=== PATIENT | male | born 1940 | race Caucasian/White ===

== ENCOUNTER → 2016-10-22 | Outpatient (CLI) | payer MEDICARE | END | disposition home or self-care (01) | LOC: CVU 07:33 | PROVIDERS: ATTEND Surgery Vascular Surgery | DX: I71.4 Abdominal aortic aneurysm, without rupture (principal); I74.09 Other arterial embolism and thrombosis of abdominal aorta | CPT/HCPCS: 93978 ==

== ENCOUNTER → 2016-11-01 | Outpatient (CLI) | payer MEDICARE | END | disposition home or self-care (01) | LOC: CFH 08:24 | PROVIDERS: ATTEND Internal Medicine Cardiovascular Disease | DX: I11.0 Hypertensive heart disease with heart failure (principal); I50.30 Unspecified diastolic (congestive) heart failure; I08.3 Combined rheumatic disorders of mitral, aortic and tricuspid valves; I37.1 Nonrheumatic pulmonary valve insufficiency; I51.7 Cardiomegaly; E78.5 Hyperlipidemia, unspecified; Z87.891 Personal history of nicotine dependence; Z86.79 Personal history of other diseases of the circulatory system | CPT/HCPCS: 93306 ==

== ENCOUNTER 2017-11-14 10:07 | Day surgery (SDC) | payer MEDICARE ==
[2017-11-13 08:49] LABS: BASOPHILS # (AUTO) 0.01 x10^3/uL (0-0.1); BASOPHILS % (AUTO) 0 % (0-1); EOSINOPHILS # (AUTO) 0.23 x10^3/uL (0-0.4); EOSINOPHILS % (AUTO) 4 % (1-7); LYMPHOCYTES # (AUTO) 1.69 x10^3/uL (1-3.4); LYMPHOCYTES % (AUTO) 25 % (22-44); MD NO; MEAN CORPUSCULAR HEMOGLOBIN 34.1 pg (27.5-34.5); MEAN CORPUSCULAR HGB CONC 33.6 g/dL (33.2-36.2); MEAN CORPUSCULAR VOLUME 101.6 fL (81-97); MEAN PLATELET VOLUME 10.1 fL (7.4-10.4); MONOCYTES # (AUTO) 0.58 x10^3/uL (0.2-0.8); MONOCYTES % (AUTO) 9 % (2-9); NEUTROPHILS # (AUTO) 4.23 x10^3/uL (1.8-6.8); NEUTROPHILS % (AUTO) 63 % (42-75); PLATELET COUNT 205 x10^3/uL (130-400); RED BLOOD COUNT 4.07 x10^6/uL (4.38-5.82); RED CELL DISTRIBUTION WIDTH 14.4 % (9.4-14.8)
[2017-11-13 08:56] LABS: INTERNATIONAL NORMALIZED RATIO 1.09 (0.93-1.1); PROTHROMBIN TIME 11.3 Seconds (9.6-11.5)
[2017-11-13 09:00] LABS: ALANINE AMINOTRANSFERASE 32 U/L (12-78); ALBUMIN 4.3 g/dL (3.4-5.0); ANION GAP 5 mmol/L (5-15); CALCIUM 8.8 mg/dL (8.5-10.1); CHLORIDE 109 mmol/L (98-107)
[2017-11-13 09:02] LABS: ALKALINE PHOSPHATASE 55 U/L (45-117); BILIRUBIN,TOTAL 0.9 mg/dL (0.2-1.0); TOTAL PROTEIN 7.7 g/dL (6.4-8.2)
[~2017-11-14] VITALS: Ht 180.3 cm; Wt 98.2 kg
[~2017-11-14 10:07] MED LIST: ALLO300T PO; ATOR-2 PO; CHOL10003 PO; FINA5TAB4 PO; LISI-167 PO; MULT-224 PO; OMEG-14 PO
[2017-11-14] MEDS ORDERED: SODIUM CHLORIDE 0.9% 1,000 ML IV ONE (10:58)
[2017-11-14] MEDS ORDERED: ASPIRIN 325 MG TABLET EC PO ONE (11:00)
[2017-11-14] MEDS ORDERED: CLOPIDOGREL 75 MG TABLET PO ONE (11:00)
[2017-11-14 11:04] VITALS: BP 173/74
[2017-11-14] MEDS ORDERED: FENTANYL PF 100 MCG/2ML ONE (11:48)
[2017-11-14] MEDS ORDERED: LIDOCAINE 2%, 2ML ONE (11:48)
[2017-11-14] MEDS ORDERED: TICAGRELOR 90 MG TABLET ONE (11:48)
[2017-11-14] MEDS ORDERED: VERAPAMIL 2.5 MG/ML, 2ML ONE (11:48)
[2017-11-14] MEDS ORDERED: MIDAZOLAM 1 MG/ML, 5ML ONE (11:48)
[2017-11-14] MEDS ORDERED: HEPARIN 1,000 UNITS/ML, 10ML ONE (11:48)
[2017-11-14] MEDS ORDERED: BIVALIRUDIN 250 MG ONE (11:48)
[2017-11-14] MEDS ORDERED: SODIUM CHLORIDE 0.9% 1,000 ML IV SCH (12:47)
== END 2017-11-14 16:01 ==
LOC: CACL 10:07
PROVIDERS: ATTEND Internal Medicine Cardiovascular Disease
DX: I25.10 Atherosclerotic heart disease of native coronary artery without angina pectoris (principal); Z88.1 Allergy status to other antibiotic agents; Z88.8 Allergy status to other drugs, medicaments and biological substances; I10 Essential (primary) hypertension; M10.9 Gout, unspecified; E11.22 Type 2 diabetes mellitus with diabetic chronic kidney disease; I12.9 Hypertensive chronic kidney disease with stage 1 through stage 4 chronic kidney disease, or unspecified chronic kidney disease; N18.3 Chronic kidney disease, stage 3 (moderate); Z98.890 Other specified postprocedural states
CPT/HCPCS: 36415; 71046; 80053; 85025; 85610; 85730; 93454; 93571; 99156; 99157; C1894; J0583; J1644; J2250; J3010; J3490; C1769; J7030; Q9967

== ENCOUNTER → 2017-12-04 | Outpatient (CLI) | payer MEDICARE ==
[~2017-12-04] MED LIST changes: +OMNIPAQUE 350 MG/ML, 150 ML BOTTLE ONE
== END | disposition home or self-care (01) ==
LOC: CVU 06:41
PROVIDERS: ATTEND Surgery Vascular Surgery
DX: I71.4 Abdominal aortic aneurysm, without rupture (principal); I35.0 Nonrheumatic aortic (valve) stenosis; I65.23 Occlusion and stenosis of bilateral carotid arteries; I10 Essential (primary) hypertension; K80.20 Calculus of gallbladder without cholecystitis without obstruction; E78.5 Hyperlipidemia, unspecified; N28.1 Cyst of kidney, acquired; K44.9 Diaphragmatic hernia without obstruction or gangrene; Z87.891 Personal history of nicotine dependence
CPT/HCPCS: 71275; 74174; 93880; 93978; 94010; 94726; 94729; Q9967

== ENCOUNTER 2017-12-24 07:14 | Inpatient (IN) | payer MEDICARE ==
[~2017-12-24] VITALS: Ht 182.9 cm; Wt 126.9 kg
[~2017-12-24 07:14] MED LIST changes: -OMNIPAQUE 350 MG/ML, 150 ML BOTTLE ONE
[2017-12-24] MEDS ORDERED: SODIUM CHLORIDE 0.9% 1,000 ML IV ONE (07:33)
[2017-12-24 07:46] VITALS: BP 129/73
[2017-12-24] MEDS ORDERED: CHLORHEXIDINE 15 ML BOTTLE MM PRN (08:00)
[2017-12-24 08:35] LABS: ALANINE AMINOTRANSFERASE 33 U/L (12-78); ALBUMIN 4.1 g/dL (3.4-5.0); ANION GAP 6 mmol/L (5-15); CALCIUM 8.9 mg/dL (8.5-10.1); CHLORIDE 107 mmol/L (98-107); CREATININE 1.92 mg/dL (0.7-1.3)
[2017-12-24 08:38] LABS: ALKALINE PHOSPHATASE 63 U/L (45-117); BILIRUBIN,TOTAL 0.6 mg/dL (0.2-1.0); TOTAL PROTEIN 7.5 g/dL (6.4-8.2)
[2017-12-24 08:39] LABS: INTERNATIONAL NORMALIZED RATIO 1.08 (0.93-1.1); PROTHROMBIN TIME 11.1 Seconds (9.6-11.5)
[2017-12-24 08:41] LABS: BASOPHILS # (AUTO) 0.02 x10^3/uL (0-0.1); BASOPHILS % (AUTO) 0 % (0-1); EOSINOPHILS # (AUTO) 1.24 x10^3/uL (0-0.4); EOSINOPHILS % (AUTO) 16 % (1-7); LYMPHOCYTES # (AUTO) 1.78 x10^3/uL (1-3.4); LYMPHOCYTES % (AUTO) 23 % (22-44); MD NO; MEAN CORPUSCULAR HEMOGLOBIN 33.8 pg (27.5-34.5); MEAN CORPUSCULAR HGB CONC 33.6 g/dL (33.2-36.2); MEAN CORPUSCULAR VOLUME 100.8 fL (81-97); MEAN PLATELET VOLUME 10.9 fL (7.4-10.4); MONOCYTES # (AUTO) 0.64 x10^3/uL (0.2-0.8); MONOCYTES % (AUTO) 8 % (2-9); NEUTROPHILS # (AUTO) 4.09 x10^3/uL (1.8-6.8); NEUTROPHILS % (AUTO) 53 % (42-75); PLATELET COUNT 189 x10^3/uL (130-400); RED BLOOD COUNT 3.91 x10^6/uL (4.38-5.82); RED CELL DISTRIBUTION WIDTH 14.3 % (9.4-14.8)
[2017-12-24] MEDS ORDERED: HEPARIN 1,000 UNITS/ML, 10ML ONE (09:27)
[2017-12-24] MEDS ORDERED: SUCCINYLCHOLINE 20 MG/ML, 10ML ONE (09:41)
[2017-12-24] MEDS ORDERED: FENTANYL PF 250 MCG/5ML ONE (09:41)
[2017-12-24] MEDS ORDERED: ROCURONIUM 10MG/ML,5ML ONE (09:41)
[2017-12-24] MEDS ORDERED: DEXAMETHASONE 4 MG/ML, 1ML ONE (09:41)
[2017-12-24] MEDS ORDERED: PROTAMINE SULFATE 10 MG/ML, 5ML ONE (09:44)
[2017-12-24] MEDS ORDERED: CEFAZOLIN 1,000 MG ONE (09:45)
[2017-12-24] MEDS ORDERED: PROPOFOL 10 MG/ML, 20ML ONE (11:15)
[2017-12-24] MEDS: ASPIRIN 81 MG TABLET EC PO SCH (12:00)
[2017-12-24] MEDS ORDERED: ACETAMINOPHEN 325 MG TABLET PO PRN (12:00)
[2017-12-24] MEDS ORDERED: ONDANSETRON 2MG/ML, 2ML IVPush PRN (12:00)
[2017-12-24] MEDS ORDERED: FINASTERIDE 5 MG TABLET ONE (12:08)
[2017-12-24] MEDS ORDERED: hydrALAzine 20 MG/ML, 1ML ONE (12:08)
[2017-12-24] MEDS ORDERED: LISINOPRIL 10 MG TABLET ONE (12:09)
[2017-12-24] MEDS: hydrALAzine 20 MG/ML, 1ML IVPush PRN ×2 (12:11→12:42)
[2017-12-24] MEDS: ONDANSETRON 2MG/ML, 2ML IVPush PRN ×2 (12:11→18:40)
[2017-12-24] MEDS: LISINOPRIL 10 MG TABLET PO SCH (12:12)
[2017-12-24] MEDS: FINASTERIDE 5 MG TABLET PO SCH (12:12)
[2017-12-24] MEDS: SODIUM CHLORIDE 0.9% 1,000 ML IV SCH ×2 (12:17→21:54)
[2017-12-24] MEDS ORDERED: LABETALOL 5MG/ML, 20ML ONE (12:43)
[2017-12-24] MEDS: LABETALOL 20 MG/4 ML IVPush PRN ×2 (12:48→15:08)
[2017-12-24] MEDS ORDERED: AMLODIPINE 5 MG TABLET ONE (14:08)
[2017-12-24] MEDS ORDERED: AMLODIPINE 5 MG TABLET PO ONE ×2 (14:30→21:00)
[2017-12-24] MEDS ORDERED: BISACODYL 10 MG SUPP ONE (16:56)
[2017-12-24] MEDS ORDERED: SIMETHICONE 125 MG CHEW TAB ONE (18:39)
[2017-12-24] MEDS ORDERED: BISACODYL 10 MG SUPP PR PRN (19:00)
[2017-12-24] MEDS ORDERED: SIMETHICONE 125 MG CHEW TAB PO PRN (19:00)
[2017-12-24 19:38] VITALS: BP 125/62
[2017-12-24] MEDS: ATORVASTATIN 80 MG TABLET PO SCH (20:18)
[2017-12-24] MEDS ORDERED: MORPHINE SULFATE 4 MG/ML, 1ML ONE (20:40)
[2017-12-24] MEDS ORDERED: MORPHINE SULFATE 4 MG/ML, 1ML IVPush PRN (21:00)
[2017-12-24] MEDS ORDERED: CLOPIDOGREL 300 MG TABLET PO ONE (21:00)
[2017-12-24] MEDS: MORPHINE SULFATE 4 MG/ML, 1ML IVPush PRN (21:26)
[2017-12-25] MEDS ORDERED: morphine SULFATE 10 MG/ML, 1ML ONE (01:01)
[2017-12-25] MEDS: MORPHINE SULFATE 4 MG/ML, 1ML IVPush PRN ×3 (02:44→09:24)
[2017-12-25 04:00] VITALS: BP 110/51
[2017-12-25 04:34] LABS: MEAN CORPUSCULAR HEMOGLOBIN 34.1 pg (27.5-34.5); MEAN CORPUSCULAR HGB CONC 33.7 g/dL (33.2-36.2); MEAN CORPUSCULAR VOLUME 101.2 fL (81-97); MEAN PLATELET VOLUME 9.7 fL (7.4-10.4); PLATELET COUNT 175 x10^3/uL (130-400); RED BLOOD COUNT 4.01 x10^6/uL (4.38-5.82); RED CELL DISTRIBUTION WIDTH 14.5 % (9.4-14.8)
[2017-12-25 04:41] LABS: ALBUMIN 3.7 g/dL (3.4-5.0); ANION GAP 10 mmol/L (5-15); CALCIUM 8.5 mg/dL (8.5-10.1); CHLORIDE 107 mmol/L (98-107); CREATININE 2.84 mg/dL (0.7-1.3)
[2017-12-25 05:31] LABS: MD YES
[2017-12-25 05:33] LABS: BAND#(MANUAL) 2.06 x10^3/uL; BANDS%(MANUAL) 8 % (0-7); LYMPH#(MANUAL) 0.77 x10^3/uL (1-3.4); LYMPHS% (MANUAL) 3 % (22-44); MONOS#(MANUAL) 1.29 x10^3/uL (0.3-2.7); MONOS% (MANUAL) 5 % (2-9); SEG#(MANUAL) 21.67 x10^3/uL (1.8-6.8); SEGS% (MANUAL) 84 % (42-75)
[2017-12-25 05:34] LABS: <PLATELET ESTIMATE> ADEQUATE; <PLT MORPHOLOGY> NORMAL PLT MORPH; ANISOCYTOSIS 1+; TOXIC GRAN 1+
[2017-12-25] MEDS: SODIUM CHLORIDE 0.9% 1,000 ML IV SCH (08:00)
[2017-12-25] MEDS: CEFTRIAXONE PMX 1GM/50ML 50 ML IV SCH (09:24)
[2017-12-25] MEDS: CLOPIDOGREL 75 MG TABLET PO SCH (09:24)
[2017-12-25] MEDS: ASPIRIN 81 MG TABLET EC PO SCH (09:24)
[2017-12-25] MEDS: ONDANSETRON 2MG/ML, 2ML IVPush PRN (09:25)
[2017-12-25] MEDS: METRONIDAZOLE PMX 500MG/100ML 100 ML IV SCH ×2 (10:36→18:48)
[2017-12-25] MEDS: FINASTERIDE 5 MG TABLET PO SCH (10:41)
[2017-12-25] MEDS: LISINOPRIL 10 MG TABLET PO SCH (10:57)
[2017-12-25] MEDS: MULTIVITAMIN 1 TABLET PO SCH (10:57)
[2017-12-25] MEDS ORDERED: SODIUM CHLORIDE 0.9% 1,000 ML IV SCH (11:54)
[2017-12-25 12:11] VITALS: BP 136/74
[2017-12-25 13:25] VITALS: BP 138/72
[2017-12-25 16:16] LABS: MICROSCOPIC INDICATED
[2017-12-25 16:26] LABS: CULTURE INDICATED? NO
[2017-12-25] MEDS: ATORVASTATIN 80 MG TABLET PO SCH (21:08)
[2017-12-25 21:30] VITALS: BP 112/67
[2017-12-26 01:17] VITALS: BP 119/70
[2017-12-26] MEDS: METRONIDAZOLE PMX 500MG/100ML 100 ML IV SCH ×3 (02:06→18:04)
[2017-12-26 05:30] LABS: ANION GAP 10 mmol/L (5-15); CHLORIDE 108 mmol/L (98-107)
[2017-12-26 05:33] LABS: CALCIUM 8.3 mg/dL (8.5-10.1); CREATININE 4.14 mg/dL (0.7-1.3)
[2017-12-26] MEDS: MORPHINE SULFATE 4 MG/ML, 1ML IVPush PRN (06:37)
[2017-12-26 08:21] VITALS: BP 117/60
[2017-12-26] MEDS: CLOPIDOGREL 75 MG TABLET PO SCH (08:22)
[2017-12-26] MEDS: CEFTRIAXONE PMX 1GM/50ML 50 ML IV SCH (08:22)
[2017-12-26] MEDS: ASPIRIN 81 MG TABLET EC PO SCH (08:22)
[2017-12-26] MEDS: MULTIVITAMIN 1 TABLET PO SCH (08:22)
[2017-12-26] MEDS: FINASTERIDE 5 MG TABLET PO SCH (08:23)
[2017-12-26] MEDS: LISINOPRIL 10 MG TABLET PO SCH (08:23)
[2017-12-26] MEDS: DOCUSATE 50 MG/5 ML, 10ML UDC PO PRN (08:23)
[2017-12-26] MEDS: SODIUM BICARB 8.4%,50ML SYR. 100 MEQ in SODIUM CHLORIDE 0.45% 1,000 ML IV SCH ×2 (09:26→18:38)
[2017-12-26 12:15] VITALS: BP 117/69
[2017-12-26] MEDS ORDERED: CEFTRIAXONE PMX 1GM/50ML 50 ML IV SCH (20:30)
[2017-12-26 21:00] VITALS: BP 138/76
[2017-12-26] MEDS: ATORVASTATIN 80 MG TABLET PO SCH (21:15)
[2017-12-26] MEDS: CEFTRIAXONE 1,000 MG in SODIUM CHLORIDE 0.9% 50 ML IV SCH (21:16)
[2017-12-27 00:54] VITALS: BP 144/76
[2017-12-27] MEDS: METRONIDAZOLE PMX 500MG/100ML 100 ML IV SCH ×3 (01:54→21:00)
[2017-12-27] MEDS: SODIUM BICARB 8.4%,50ML SYR. 100 MEQ in SODIUM CHLORIDE 0.45% 1,000 ML IV SCH (02:31)
[2017-12-27 05:10] LABS: MEAN CORPUSCULAR HEMOGLOBIN 34.6 pg (27.5-34.5); MEAN CORPUSCULAR HGB CONC 33.8 g/dL (33.2-36.2); MEAN CORPUSCULAR VOLUME 102.2 fL (81-97); RED BLOOD COUNT 3.65 x10^6/uL (4.38-5.82); RED CELL DISTRIBUTION WIDTH 14.7 % (9.4-14.8)
[2017-12-27 05:20] LABS: ANION GAP 10 mmol/L (5-15); CALCIUM 7.8 mg/dL (8.5-10.1); CHLORIDE 103 mmol/L (98-107)
[2017-12-27 05:47] LABS: MEAN PLATELET VOLUME 9.9 fL (7.4-10.4); PLATELET COUNT 99 x10^3/uL (130-400)
[2017-12-27 05:48] LABS: MD YES
[2017-12-27 05:50] LABS: <PLATELET ESTIMATE> DECREASED; ANISOCYTOSIS 1+; BAND#(MANUAL) 1.59 x10^3/uL; BANDS%(MANUAL) 9 % (0-7); LARGE PLATELETS 1+; LYMPH#(MANUAL) 0.71 x10^3/uL (1-3.4); LYMPHS% (MANUAL) 4 % (22-44); METAMYELOCYTES# (MANUAL) 0.18 x10^3/uL (0-0); METAMYELOCYTES% (MANUAL) 1 % (0-1); MONOS#(MANUAL) 1.06 x10^3/uL (0.3-2.7); MONOS% (MANUAL) 6 % (2-9); SEG#(MANUAL) 14.16 x10^3/uL (1.8-6.8); SEGS% (MANUAL) 80 % (42-75)
[2017-12-27 05:52] LABS: TOXIC GRAN 1+
[2017-12-27 07:44] VITALS: BP 143/81
[2017-12-27] MEDS: DOCUSATE 50 MG/5 ML, 10ML UDC PO PRN (08:19)
[2017-12-27] MEDS: ASPIRIN 81 MG TABLET EC PO SCH (08:19)
[2017-12-27] MEDS: CEFTRIAXONE 1,000 MG in SODIUM CHLORIDE 0.9% 50 ML IV SCH ×2 (08:19→20:19)
[2017-12-27] MEDS: CLOPIDOGREL 75 MG TABLET PO SCH (08:19)
[2017-12-27] MEDS: MULTIVITAMIN 1 TABLET PO SCH (08:19)
[2017-12-27 08:59] LABS: FOLATE LEVEL 15.4 ng/mL (3.1-17.5); THYROID STIMULATING HORMONE 1.02 mIU/L (0.358-3.740)
[2017-12-27] MEDS: SODIUM BICARB 8.4%,50ML SYR. 75 MEQ in SODIUM CHLORIDE 0.45% 1,000 ML IV SCH (12:24)
[2017-12-27] MEDS: AMLODIPINE 2.5 MG TABLET PO SCH (12:33)
[2017-12-27 14:47] VITALS: BP 134/74
[2017-12-27 19:42] VITALS: BP 126/73
[2017-12-27] MEDS: FINASTERIDE 5 MG TABLET PO SCH (22:00)
[2017-12-27] MEDS: ATORVASTATIN 80 MG TABLET PO SCH (22:00)
[2017-12-28 01:40] VITALS: BP 123/74
[2017-12-28] MEDS: SODIUM BICARB 8.4%,50ML SYR. 75 MEQ in SODIUM CHLORIDE 0.45% 1,000 ML IV SCH (03:42)
[2017-12-28 04:51] LABS: MEAN CORPUSCULAR HEMOGLOBIN 34.4 pg (27.5-34.5); MEAN CORPUSCULAR VOLUME 101.4 fL (81-97); MEAN PLATELET VOLUME 10.1 fL (7.4-10.4); PLATELET COUNT 99 x10^3/uL (130-400); RED BLOOD COUNT 3.62 x10^6/uL (4.38-5.82); RED CELL DISTRIBUTION WIDTH 14.4 % (9.4-14.8)
[2017-12-28 05:01] LABS: CALCIUM 8.4 mg/dL (8.5-10.1); CHLORIDE 103 mmol/L (98-107)
[2017-12-28 05:07] LABS: ALANINE AMINOTRANSFERASE 39 U/L (12-78); ALBUMIN 2.5 g/dL (3.4-5.0); ALKALINE PHOSPHATASE 216 U/L (45-117); ANION GAP 9 mmol/L (5-15); BILIRUBIN,TOTAL 0.8 mg/dL (0.2-1.0); CREATININE 3.36 mg/dL (0.7-1.3)
[2017-12-28] MEDS: METRONIDAZOLE PMX 500MG/100ML 100 ML IV SCH ×3 (05:07→21:31)
[2017-12-28 06:22] LABS: MD YES
[2017-12-28 06:24] LABS: BAND#(MANUAL) 0.78 x10^3/uL; BANDS%(MANUAL) 4 % (0-7); LYMPHS% (MANUAL) 5 % (22-44); SEG#(MANUAL) 16.38 x10^3/uL (1.8-6.8); SEGS% (MANUAL) 84 % (42-75)
[2017-12-28 06:25] LABS: ANISOCYTOSIS 1+; LYMPH#(MANUAL) 0.98 x10^3/uL (1-3.4); MONOS#(MANUAL) 1.37 x10^3/uL (0.3-2.7); MONOS% (MANUAL) 7 % (2-9); TOXIC GRAN 1+
[2017-12-28 06:26] LABS: <PLATELET ESTIMATE> DECREASED; LARGE PLATELETS 1+
[2017-12-28 06:45] VITALS: BP 152/75
[2017-12-28 06:59] VITALS: BP 103/71
[2017-12-28] MEDS: MORPHINE SULFATE 4 MG/ML, 1ML IVPush PRN ×3 (08:02→15:17)
[2017-12-28] MEDS: CEFTRIAXONE 1,000 MG in SODIUM CHLORIDE 0.9% 50 ML IV SCH ×2 (08:02→20:30)
[2017-12-28] MEDS: ASPIRIN 81 MG TABLET EC PO SCH (08:32)
[2017-12-28] MEDS: CLOPIDOGREL 75 MG TABLET PO SCH (08:32)
[2017-12-28] MEDS: MULTIVITAMIN 1 TABLET PO SCH (08:32)
[2017-12-28] MEDS: AMLODIPINE 2.5 MG TABLET PO SCH (08:32)
[2017-12-28] MEDS: LACTATED RINGERS 1,000 ML IV SCH ×2 (11:00→22:16)
[2017-12-28 13:07] VITALS: BP 136/78
[2017-12-28] MEDS: ATORVASTATIN 80 MG TABLET PO SCH ×2 (19:37→19:38)
[2017-12-28] MEDS: FINASTERIDE 5 MG TABLET PO SCH ×2 (19:37→19:38)
[2017-12-28 19:47] VITALS: BP 125/68
[2017-12-29 00:17] VITALS: BP 139/76
[2017-12-29] MEDS: MORPHINE SULFATE 4 MG/ML, 1ML IVPush PRN ×3 (00:23→19:09)
[2017-12-29 03:55] VITALS: BP 146/74
[2017-12-29] MEDS: LACTATED RINGERS 1,000 ML IV SCH ×3 (05:23→22:00)
[2017-12-29] MEDS: METRONIDAZOLE PMX 500MG/100ML 100 ML IV SCH ×3 (05:23→19:49)
[2017-12-29 05:27] LABS: MEAN CORPUSCULAR HEMOGLOBIN 33.9 pg (27.5-34.5); MEAN CORPUSCULAR HGB CONC 33.6 g/dL (33.2-36.2); MEAN PLATELET VOLUME 11.1 fL (7.4-10.4); PLATELET COUNT 114 x10^3/uL (130-400); RED BLOOD COUNT 3.54 x10^6/uL (4.38-5.82); RED CELL DISTRIBUTION WIDTH 14.7 % (9.4-14.8)
[2017-12-29 05:36] LABS: CHLORIDE 105 mmol/L (98-107)
[2017-12-29 05:54] LABS: ALANINE AMINOTRANSFERASE 56 U/L (12-78); ALBUMIN 2.3 g/dL (3.4-5.0); ALKALINE PHOSPHATASE 220 U/L (45-117); ANION GAP 9 mmol/L (5-15); BILIRUBIN,TOTAL 1.1 mg/dL (0.2-1.0); CALCIUM 7.9 mg/dL (8.5-10.1); TOTAL PROTEIN 5.8 g/dL (6.4-8.2)
[2017-12-29 06:27] LABS: MD YES
[2017-12-29 06:28] LABS: BANDS%(MANUAL) 3 % (0-7); LYMPH#(MANUAL) 1.01 x10^3/uL (1-3.4); LYMPHS% (MANUAL) 5 % (22-44); MONOS#(MANUAL) 1.21 x10^3/uL (0.3-2.7); MONOS% (MANUAL) 6 % (2-9); SEG#(MANUAL) 17.29 x10^3/uL (1.8-6.8); SEGS% (MANUAL) 86 % (42-75)
[2017-12-29 06:29] LABS: ANISOCYTOSIS 1+; TOXIC GRAN 1+
[2017-12-29 06:30] LABS: <PLATELET ESTIMATE> DECREASED; LARGE PLATELETS 1+
[2017-12-29 08:00] VITALS: BP 164/80
[2017-12-29] MEDS: ASPIRIN 81 MG TABLET EC PO SCH (09:01)
[2017-12-29] MEDS: AMLODIPINE 2.5 MG TABLET PO SCH (09:01)
[2017-12-29] MEDS: CEFTRIAXONE 1,000 MG in SODIUM CHLORIDE 0.9% 50 ML IV SCH ×2 (09:01→19:56)
[2017-12-29] MEDS: MULTIVITAMIN 1 TABLET PO SCH (09:01)
[2017-12-29] MEDS: CLOPIDOGREL 75 MG TABLET PO SCH (09:02)
[2017-12-29 14:45] VITALS: BP 143/84
[2017-12-29] MEDS ORDERED: LIDOCAINE GEL 2%, 5ML ONE (15:54)
[2017-12-29] MEDS ORDERED: BENZOCAINE 20% SPRAY 0.5ML ONE (15:54)
[2017-12-29] MEDS ORDERED: OMNIPAQUE 350 MG/ML, 150 ML BOTTLE ONE (17:03)
[2017-12-29] MEDS: hydrALAzine 20 MG/ML, 1ML IV SCH ×2 (17:31→19:56)
[2017-12-29 18:55] VITALS: BP 156/66
[2017-12-29] MEDS: ATORVASTATIN 80 MG TABLET PO SCH (19:56)
[2017-12-29] MEDS: FINASTERIDE 5 MG TABLET PO SCH (19:57)
[2017-12-30 00:36] VITALS: BP 137/70
[2017-12-30] MEDS: MORPHINE SULFATE 4 MG/ML, 1ML IVPush PRN ×4 (00:47→23:19)
[2017-12-30] MEDS: LACTATED RINGERS 1,000 ML IV SCH ×2 (04:00→20:00)
[2017-12-30] MEDS: hydrALAzine 20 MG/ML, 1ML IV SCH ×4 (04:01→21:06)
[2017-12-30] MEDS: METRONIDAZOLE PMX 500MG/100ML 100 ML IV SCH ×3 (04:01→21:05)
[2017-12-30 05:16] LABS: MEAN CORPUSCULAR HEMOGLOBIN 33.6 pg (27.5-34.5); MEAN CORPUSCULAR HGB CONC 33.3 g/dL (33.2-36.2); MEAN CORPUSCULAR VOLUME 100.8 fL (81-97); MEAN PLATELET VOLUME 11.2 fL (7.4-10.4); PLATELET COUNT 123 x10^3/uL (130-400); RED BLOOD COUNT 3.57 x10^6/uL (4.38-5.82); RED CELL DISTRIBUTION WIDTH 14.6 % (9.4-14.8)
[2017-12-30 05:21] LABS: CHLORIDE 108 mmol/L (98-107)
[2017-12-30 05:27] LABS: ANION GAP 11 mmol/L (5-15); CALCIUM 8.5 mg/dL (8.5-10.1); CREATININE 2.57 mg/dL (0.7-1.3)
[2017-12-30 06:09] LABS: MD YES
[2017-12-30 06:11] LABS: <PLATELET ESTIMATE> DECREASED; ANISOCYTOSIS 1+; BAND#(MANUAL) 0.19 x10^3/uL; BANDS%(MANUAL) 1 % (0-7); LARGE PLATELETS 1+; LYMPH#(MANUAL) 1.35 x10^3/uL (1-3.4); LYMPHS% (MANUAL) 7 % (22-44); METAMYELOCYTES# (MANUAL) 0.19 x10^3/uL (0-0); METAMYELOCYTES% (MANUAL) 1 % (0-1); MONOS#(MANUAL) 0.77 x10^3/uL (0.3-2.7); MONOS% (MANUAL) 4 % (2-9); SEG#(MANUAL) 16.79 x10^3/uL (1.8-6.8); SEGS% (MANUAL) 87 % (42-75); TOXIC GRAN 1+
[2017-12-30] MEDS ORDERED: POTASSIUM CHLORIDE 40 MEQ in SODIUM CHLORIDE 0.9% 500 ML IV ONE (08:00)
[2017-12-30 08:10] VITALS: BP 131/68
[2017-12-30] MEDS: CEFTRIAXONE 1,000 MG in SODIUM CHLORIDE 0.9% 50 ML IV SCH (08:50)
[2017-12-30] MEDS: ASPIRIN 81 MG TABLET EC PO SCH (08:51)
[2017-12-30] MEDS: CLOPIDOGREL 75 MG TABLET PO SCH (08:51)
[2017-12-30] MEDS: MULTIVITAMIN 1 TABLET PO SCH (08:51)
[2017-12-30 13:39] VITALS: BP 126/71
[2017-12-30] MEDS ORDERED: LIDOCAINE-MPF 1%, 2ML ONE (14:55)
[2017-12-30 16:50] VITALS: BP 136/76
[2017-12-30 20:00] VITALS: BP 128/66
[2017-12-30] MEDS: CEFTRIAXONE PMX 1GM/50ML 50 ML IV SCH (20:00)
[2017-12-30] MEDS: FINASTERIDE 5 MG TABLET PO SCH (20:56)
[2017-12-30] MEDS: ATORVASTATIN 80 MG TABLET PO SCH (20:56)
[2017-12-31 03:00] VITALS: BP 127/68
[2017-12-31] MEDS: LACTATED RINGERS 1,000 ML IV SCH (03:43)
[2017-12-31] MEDS: hydrALAzine 20 MG/ML, 1ML IV SCH ×4 (03:43→21:00)
[2017-12-31] MEDS: MORPHINE SULFATE 4 MG/ML, 1ML IVPush PRN ×2 (04:26→12:05)
[2017-12-31 05:20] LABS: MEAN CORPUSCULAR HEMOGLOBIN 33.8 pg (27.5-34.5); MEAN CORPUSCULAR HGB CONC 33.3 g/dL (33.2-36.2); MEAN CORPUSCULAR VOLUME 101.6 fL (81-97); MEAN PLATELET VOLUME 10.9 fL (7.4-10.4); PLATELET COUNT 158 x10^3/uL (130-400); RED BLOOD COUNT 3.52 x10^6/uL (4.38-5.82); RED CELL DISTRIBUTION WIDTH 15.5 % (9.4-14.8)
[2017-12-31] MEDS: METRONIDAZOLE PMX 500MG/100ML 100 ML IV SCH ×2 (05:24→13:39)
[2017-12-31 05:32] LABS: ALBUMIN 2.2 g/dL (3.4-5.0); ANION GAP 9 mmol/L (5-15); CALCIUM 8.1 mg/dL (8.5-10.1); CHLORIDE 111 mmol/L (98-107)
[2017-12-31 05:38] LABS: ALANINE AMINOTRANSFERASE 80 U/L (12-78); ALKALINE PHOSPHATASE 265 U/L (45-117); BILIRUBIN,TOTAL 1.1 mg/dL (0.2-1.0); TOTAL PROTEIN 5.8 g/dL (6.4-8.2)
[2017-12-31 05:40] LABS: MD YES
[2017-12-31 05:42] LABS: <PLATELET ESTIMATE> ADEQUATE; ANISOCYTOSIS 1+; BAND#(MANUAL) 0.51 x10^3/uL; BANDS%(MANUAL) 2 % (0-7); LARGE PLATELETS 1+; LYMPH#(MANUAL) 2.06 x10^3/uL (1-3.4); LYMPHS% (MANUAL) 8 % (22-44); METAMYELOCYTES# (MANUAL) 0.26 x10^3/uL (0-0); METAMYELOCYTES% (MANUAL) 1 % (0-1); MONOS#(MANUAL) 1.03 x10^3/uL (0.3-2.7); MONOS% (MANUAL) 4 % (2-9); SEG#(MANUAL) 21.85 x10^3/uL (1.8-6.8); SEGS% (MANUAL) 85 % (42-75); TOXIC GRAN 1+
[2017-12-31] MEDS ORDERED: POTASSIUM CHLORIDE 40 MEQ in SODIUM CHLORIDE 0.9% 500 ML IV ONE (07:30)
[2017-12-31 07:35] VITALS: BP 123/64
[2017-12-31] MEDS: CLOPIDOGREL 75 MG TABLET PO SCH (09:36)
[2017-12-31] MEDS: ASPIRIN 81 MG TABLET EC PO SCH (09:36)
[2017-12-31] MEDS: MULTIVITAMIN 1 TABLET PO SCH (09:36)
[2017-12-31] MEDS: CEFTRIAXONE PMX 1GM/50ML 50 ML IV SCH (09:36)
[2017-12-31] MEDS ORDERED: TPN PER PHARMACY MC SCH (10:00)
[2017-12-31] MEDS ORDERED: SODIUM CHLORIDE 0.45% 1,000 ML IV SCH ×2 (10:30→11:30)
[2017-12-31] MEDS ORDERED: FILTER, DISP 1.2 MICRON FOR TPN/PVN IV PRN (13:00)
[2017-12-31 13:18] VITALS: BP 123/76
[2017-12-31 16:06] VITALS: BP 117/63
[2017-12-31] MEDS ORDERED: DEXTROSE 70% IV SCH (17:00)
[2017-12-31] MEDS ORDERED: DEXTROSE 10% 500 ML IV PRN (17:00)
[2017-12-31] MEDS ORDERED: FAT EMULSIONS IV SCH (17:00)
[2017-12-31] MEDS ORDERED: [UNRECOGNIZED DRUG - OTHER] IV SCH (17:00)
[2017-12-31] MEDS ORDERED: AMINO ACID 10% IV SCH (17:00)
[2017-12-31] MEDS ORDERED: DEXTROSE 50%, 50ML SYRINGE IVPush PRN (17:00)
[2017-12-31] MEDS ORDERED: FENTANYL PF 250 MCG/5ML ONE ×2 (18:32→20:33)
[2017-12-31] MEDS ORDERED: ROCURONIUM 10 MG/ML,10ML ONE (18:39)
[2017-12-31] MEDS ORDERED: PROPOFOL 10 MG/ML, 20ML ONE (18:39)
[2017-12-31] MEDS ORDERED: CEFAZOLIN 1,000 MG ONE (18:39)
[2017-12-31] MEDS ORDERED: MORPHINE SULFATE 4 MG/ML, 1ML IVPush PRN (20:00)
[2017-12-31] MEDS ORDERED: MEPERIDINE/PF 25MG/0.5ML IVPush PRN (20:00)
[2017-12-31] MEDS ORDERED: PROMETHAZINE 12.5 MG SUPP PR PRN (20:00)
[2017-12-31] MEDS ORDERED: FENTANYL PF 100 MCG/2ML IV PRN (20:00)
[2017-12-31] MEDS ORDERED: MIDAZOLAM 1 MG/ML, 5ML ONE (20:33)
[2017-12-31] MEDS ORDERED: THROMBIN 20,000 UNIT VIAL TP ONE (20:34)
[2017-12-31] MEDS: ATORVASTATIN 80 MG TABLET PO SCH (21:00)
[2017-12-31] MEDS: FINASTERIDE 5 MG TABLET PO SCH (21:00)
[2017-12-31] MEDS: INSULIN REGULAR LOW DOSE Q6H X 48HRS SQ-INSULIN SCH (21:00)
[2017-12-31] MEDS ORDERED: PROPOFOL 100 ML IV ONE (21:45)
[2017-12-31] MEDS: NOREPINEPHRINE 4 MG in SODIUM CHLORIDE 0.9% 246 ML IV SCH (23:22)
[2017-12-31] MEDS ORDERED: SODIUM CHLORIDE 0.9% 1,000ML IVBOLUS ONE ×2 (23:30)
[2017-12-31 23:32] LABS: ALANINE AMINOTRANSFERASE 58 U/L (12-78); ALBUMIN 1.4 g/dL (3.4-5.0); ANION GAP 15 mmol/L (5-15); CALCIUM 7.4 mg/dL (8.5-10.1); CHLORIDE 113 mmol/L (98-107); CREATININE 3.32 mg/dL (0.7-1.3)
[2017-12-31 23:34] LABS: ALKALINE PHOSPHATASE 267 U/L (45-117); BILIRUBIN,TOTAL 0.6 mg/dL (0.2-1.0); TOTAL PROTEIN 4.3 g/dL (6.4-8.2); TRIGLYCERIDES 205 mg/dL (50-200)
[2017-12-31 23:36] LABS: MEAN CORPUSCULAR HEMOGLOBIN 34.2 pg (27.5-34.5); MEAN CORPUSCULAR HGB CONC 33.3 g/dL (33.2-36.2); MEAN CORPUSCULAR VOLUME 102.5 fL (81-97); MEAN PLATELET VOLUME 11.3 fL (7.4-10.4); PLATELET COUNT 205 x10^3/uL (130-400); RED BLOOD COUNT 3.06 x10^6/uL (4.38-5.82); RED CELL DISTRIBUTION WIDTH 15.6 % (9.4-14.8)
[2017-12-31 23:53] LABS: MD YES
[2017-12-31 23:56] LABS: <PLATELET ESTIMATE> ADEQUATE; ANISOCYTOSIS 1+; BAND#(MANUAL) 1.28 x10^3/uL; BANDS%(MANUAL) 5 % (0-7); LARGE PLATELETS 1+; LYMPH#(MANUAL) 2.81 x10^3/uL (1-3.4); LYMPHS% (MANUAL) 11 % (22-44); MONOS#(MANUAL) 0.26 x10^3/uL (0.3-2.7); MONOS% (MANUAL) 1 % (2-9); SEG#(MANUAL) 21.17 x10^3/uL (1.8-6.8); SEGS% (MANUAL) 83 % (42-75); TOXIC GRAN 1+
[2017-12-31] MEDS ORDERED: SODIUM BICARB 8.4%, 50ML SYRINGE ONE (23:58)
[2018-01-01] MEDS ORDERED: SODIUM CHLORIDE 0.9%, 500ML IVBOLUS ONE
[2018-01-01] MEDS ORDERED: PHENYLEPHRINE 20 MG in SODIUM CHLORIDE 0.9% 248 ML IV PRN (00:01)
[2018-01-01] MEDS ORDERED: SODIUM CHLORIDE 0.9%, 500ML IV ONE (00:30)
[2018-01-01] MEDS ORDERED: SODIUM CHLORIDE 0.9% 1,000 ML IV SCH (00:30)
[2018-01-01] MEDS ORDERED: PHARMACY MAY ADJ FOR RENAL FX MC SCH (00:30)
[2018-01-01] MEDS ORDERED: LIDOCAINE-MPF 1%, 2ML ENDO PRN (00:30)
[2018-01-01] MEDS ORDERED: ALBUTEROL/IPRATROPIUM 2.5MG/0.5MG, 3 ML INLINE SCH (00:30)
[2018-01-01] MEDS: FENTANYL PF 100 MCG/2ML IVPush PRN ×5 (01:03→10:03)
[2018-01-01] MEDS: CEFTRIAXONE PMX 1GM/50ML 50 ML IV SCH (01:27)
[2018-01-01] MEDS: FAMOTIDINE 20 MG/2 ML IV SCH ×2 (02:14→13:10)
[2018-01-01] MEDS: METRONIDAZOLE PMX 500MG/100ML 100 ML IV SCH ×3 (02:18→19:59)
[2018-01-01] MEDS: hydrALAzine 20 MG/ML, 1ML IV SCH ×4 (02:25→19:59)
[2018-01-01] MEDS: PHENYLEPHRINE 40 MG in SODIUM CHLORIDE 0.9% 246 ML IV PRN ×2 (02:49→06:11)
[2018-01-01] MEDS: INSULIN REGULAR LOW DOSE Q6H X 48HRS SQ-INSULIN SCH ×4 (03:00→21:45)
[2018-01-01] MEDS: FLUCONAZOLE 200 MG/100 ML 100 ML IV SCH (03:33)
[2018-01-01 04:00] VITALS: BP 89/50
[2018-01-01 05:34] LABS: ANION GAP 11 mmol/L (5-15); CALCIUM 6.8 mg/dL (8.5-10.1); CHLORIDE 116 mmol/L (98-107)
[2018-01-01 05:38] LABS: CREATININE 3.21 mg/dL (0.7-1.3); PREALBUMIN 5.6 mg/dL (20.0-40.0); TRIGLYCERIDES 172 mg/dL (50-200)
[2018-01-01 05:55] LABS: MEAN CORPUSCULAR HEMOGLOBIN 33.9 pg (27.5-34.5); MEAN CORPUSCULAR HGB CONC 33.5 g/dL (33.2-36.2); MEAN CORPUSCULAR VOLUME 101.2 fL (81-97); MEAN PLATELET VOLUME 11.4 fL (7.4-10.4); PLATELET COUNT 205 x10^3/uL (130-400); RED BLOOD COUNT 2.88 x10^6/uL (4.38-5.82); RED CELL DISTRIBUTION WIDTH 15.4 % (9.4-14.8)
[2018-01-01 05:56] LABS: MD YES
[2018-01-01 06:02] LABS: <PLATELET ESTIMATE> ADEQUATE; ANISOCYTOSIS 1+; BAND#(MANUAL) 10.79 x10^3/uL; BANDS%(MANUAL) 21 % (0-7); LARGE PLATELETS 1+; LYMPH#(MANUAL) 4.63 x10^3/uL (1-3.4); LYMPHS% (MANUAL) 9 % (22-44); METAMYELOCYTES# (MANUAL) 1.54 x10^3/uL (0-0); METAMYELOCYTES% (MANUAL) 3 % (0-1); MONOS#(MANUAL) 1.03 x10^3/uL (0.3-2.7); MONOS% (MANUAL) 2 % (2-9); MYELOCYTES# (MANUAL) 0.51 x10^3/uL (0-0); MYELOCYTES% (MANUAL) 1 % (0-0); SEGS% (MANUAL) 64 % (42-75); TOXIC GRAN 2+
[2018-01-01 06:05] LABS: POLYCHROMASIA 1+
[2018-01-01] MEDS: ALBUTEROL/IPRATROPIUM 2.5MG/0.5MG, 3 ML INLINE SCH ×5 (06:45→23:17)
[2018-01-01] MEDS ORDERED: DAPTOMYCIN 600 MG in SODIUM CHLORIDE 0.9% 100 ML IVPB SCH (09:00)
[2018-01-01] MEDS: MULTIVITAMIN 1 TABLET PO SCH (09:00)
[2018-01-01] MEDS: ASPIRIN 81 MG TABLET EC PO SCH (09:00)
[2018-01-01] MEDS: CLOPIDOGREL 75 MG TABLET PO SCH (09:00)
[2018-01-01] MEDS: VASOPRESSIN 100 UNIT in SODIUM CHLORIDE 0.9% 495 ML IV PRN (09:18)
[2018-01-01] MEDS: MEROPENEM 1 GM in SODIUM CHLORIDE 0.9% 100 ML IV SCH ×2 (09:39→21:38)
[2018-01-01 09:40] LABS: ALBUMIN 1.4 g/dL (3.4-5.0)
[2018-01-01 09:43] LABS: ALANINE AMINOTRANSFERASE 138 U/L (12-78); ALKALINE PHOSPHATASE 215 U/L (45-117); BILIRUBIN,TOTAL 0.9 mg/dL (0.2-1.0); TOTAL PROTEIN 4.1 g/dL (6.4-8.2)
[2018-01-01] MEDS: ARTIFICIAL TEARS OINT 3.5 GM EACHEYE SCH ×3 (11:30→23:30)
[2018-01-01] MEDS: SODIUM CHLORIDE 0.9% 1,000 ML IV SCH ×2 (12:26→21:38)
[2018-01-01] MEDS: ARTIFICIAL TEARS 15 DROP/ML BOTTLE EACHEYE PRN ×3 (13:03→17:40)
[2018-01-01] MEDS: FENTANYL PF 2,500 MCG in SODIUM CHLORIDE 0.9% 200 ML IV PRN (13:05)
[2018-01-01] MEDS ORDERED: HEPARIN 5,000 UNITS/ML, 1ML IV ONE ×2 (16:00→17:00)
[2018-01-01] MEDS ORDERED: HEPARIN 25,000 UNITS/500ML PMX 500 ML IV PRN (16:00)
[2018-01-01] MEDS ORDERED: HEPARIN 5,000 UNITS/ML, 1ML IV PRN (16:00)
[2018-01-01] MEDS ORDERED: FILTER, DISP 1.2 MICRON FOR TPN/PVN IV PRN (17:00)
[2018-01-01] MEDS ORDERED: FAT EMULSIONS IV SCH (17:00)
[2018-01-01] MEDS ORDERED: DEXTROSE 70% IV SCH (17:00)
[2018-01-01] MEDS ORDERED: [UNRECOGNIZED DRUG - OTHER] IV SCH (17:00)
[2018-01-01] MEDS ORDERED: AMINO ACID 10% IV SCH (17:00)
[2018-01-01] MEDS: HEPARIN 25,000 UNITS/500ML PMX 500 ML IV PRN (17:47)
[2018-01-01] MEDS: FINASTERIDE 5 MG TABLET PO SCH (19:59)
[2018-01-01] MEDS: PROPOFOL 100 ML IV PRN (20:00)
[2018-01-01] MEDS: ATORVASTATIN 80 MG TABLET PO SCH (21:00)
[2018-01-02] VITALS (7 sets, daily range): BP systolic 107–117; BP diastolic 36–49
[2018-01-02] MEDS: ARTIFICIAL TEARS 15 DROP/ML BOTTLE EACHEYE PRN ×8 (00:16→23:51)
[2018-01-02] MEDS: FLUCONAZOLE 200 MG/100 ML 100 ML IV SCH (00:17)
[2018-01-02] MEDS: hydrALAzine 20 MG/ML, 1ML IV SCH ×4 (00:22→20:07)
[2018-01-02] MEDS ORDERED: PHENYLEPHRINE 10 MG/ML ONE (00:34)
[2018-01-02] MEDS: PHENYLEPHRINE 80 MG in SODIUM CHLORIDE 0.9% 242 ML IV PRN ×2 (00:41→12:35)
[2018-01-02] MEDS: HEPARIN 5,000 UNITS/ML, 1ML IV PRN ×2 (01:39→08:20)
[2018-01-02] MEDS: ALBUTEROL/IPRATROPIUM 2.5MG/0.5MG, 3 ML INLINE SCH ×5 (03:00→22:54)
[2018-01-02] MEDS: METRONIDAZOLE PMX 500MG/100ML 100 ML IV SCH ×3 (04:06→20:07)
[2018-01-02] MEDS: INSULIN REGULAR LOW DOSE Q6H X 48HRS SQ-INSULIN SCH (04:10)
[2018-01-02 05:27] LABS: CHLORIDE 116 mmol/L (98-107)
[2018-01-02] MEDS: ARTIFICIAL TEARS OINT 3.5 GM EACHEYE SCH ×4 (05:30→23:30)
[2018-01-02 05:37] LABS: MEAN CORPUSCULAR HEMOGLOBIN 34.9 pg (27.5-34.5); MEAN CORPUSCULAR HGB CONC 34.3 g/dL (33.2-36.2); MEAN CORPUSCULAR VOLUME 101.6 fL (81-97); MEAN PLATELET VOLUME 12.2 fL (7.4-10.4); PLATELET COUNT 174 x10^3/uL (130-400); RED BLOOD COUNT 2.16 x10^6/uL (4.38-5.82); RED CELL DISTRIBUTION WIDTH 15.8 % (9.4-14.8)
[2018-01-02] MEDS: SODIUM CHLORIDE 0.9% 1,000 ML IV SCH (05:43)
[2018-01-02 05:47] LABS: ALANINE AMINOTRANSFERASE 518 U/L (12-78); ALBUMIN 1.1 g/dL (3.4-5.0); ALKALINE PHOSPHATASE 212 U/L (45-117); ANION GAP 13 mmol/L (5-15); BILIRUBIN,TOTAL 1.3 mg/dL (0.2-1.0); CALCIUM 6.3 mg/dL (8.5-10.1); CREATININE 4.12 mg/dL (0.7-1.3); TOTAL PROTEIN 3.9 g/dL (6.4-8.2)
[2018-01-02 06:06] LABS: CREATINE KINASE, TOTAL 4535 U/L (39-308)
[2018-01-02 06:10] LABS: TROPONIN I > 200.000 ng/mL (0.000-0.045)
[2018-01-02 06:22] LABS: MD YES
[2018-01-02 06:27] LABS: BAND#(MANUAL) 4.63 x10^3/uL; BANDS%(MANUAL) 12 % (0-7); LYMPH#(MANUAL) 0.77 x10^3/uL (1-3.4); LYMPHS% (MANUAL) 2 % (22-44); MONOS#(MANUAL) 0.39 x10^3/uL (0.3-2.7); MONOS% (MANUAL) 1 % (2-9); MYELOCYTES# (MANUAL) 0.39 x10^3/uL (0-0); MYELOCYTES% (MANUAL) 1 % (0-0); NRBC % (MANUAL) 1 % (0-1); SEG#(MANUAL) 32.42 x10^3/uL (1.8-6.8); SEGS% (MANUAL) 84 % (42-75)
[2018-01-02 06:28] LABS: ANISOCYTOSIS 1+; POLYCHROMASIA 1+
[2018-01-02 06:29] LABS: <PLATELET ESTIMATE> ADEQUATE; LARGE PLATELETS 1+; TOXIC GRAN 2+
[2018-01-02] MEDS: CLOPIDOGREL 75 MG TABLET PO SCH (09:00)
[2018-01-02] MEDS: MULTIVITAMIN 1 TABLET PO SCH (09:00)
[2018-01-02] MEDS ORDERED: FAMOTIDINE 20 MG/2 ML IV SCH (09:00)
[2018-01-02] MEDS: ASPIRIN 81 MG TABLET EC PO SCH (09:00)
[2018-01-02] MEDS: MEROPENEM 1 GM in SODIUM CHLORIDE 0.9% 100 ML IV SCH (09:23)
[2018-01-02] MEDS: LINEZOLID PMX 600MG/300ML 300 ML IV SCH ×2 (09:47→21:59)
[2018-01-02] MEDS: HEPARIN 25,000 UNITS/500ML PMX 500 ML IV PRN (14:41)
[2018-01-02] MEDS ORDERED: FAT EMULSIONS IV SCH (17:00)
[2018-01-02] MEDS ORDERED: AMINO ACID 10% IV SCH (17:00)
[2018-01-02] MEDS ORDERED: DEXTROSE 70% IV SCH (17:00)
[2018-01-02] MEDS ORDERED: [UNRECOGNIZED DRUG - OTHER] IV SCH (17:00)
[2018-01-02] MEDS: FILTER, DISP 1.2 MICRON FOR TPN/PVN IV PRN (18:17)
[2018-01-02] MEDS: ATORVASTATIN 80 MG TABLET PO SCH (20:07)
[2018-01-02] MEDS: FINASTERIDE 5 MG TABLET PO SCH (20:08)
[2018-01-02] MEDS: INSULIN REGULAR MEDIUM DOSE Q6H X 48HRS SQ-INSULIN SCH (21:00)
[2018-01-02] MEDS: PROPOFOL 100 ML IV PRN (21:23)
[2018-01-02] MEDS: MEROPENEM 500 MG in SODIUM CHLORIDE 0.9% 100 ML IV SCH (21:27)
[2018-01-02] MEDS: VASOPRESSIN 100 UNIT in SODIUM CHLORIDE 0.9% 495 ML IV PRN (23:51)
[2018-01-03] VITALS (10 sets, daily range): BP systolic 71–125; BP diastolic 35–67
[2018-01-03] MEDS: FLUCONAZOLE 200 MG/100 ML 100 ML IV SCH (01:27)
[2018-01-03] MEDS: PROPOFOL 100 ML IV PRN ×3 (02:18→22:18)
[2018-01-03] MEDS: ALBUTEROL/IPRATROPIUM 2.5MG/0.5MG, 3 ML INLINE SCH ×4 (02:25→23:12)
[2018-01-03] MEDS: hydrALAzine 20 MG/ML, 1ML IV SCH (03:00)
[2018-01-03] MEDS: INSULIN REGULAR MEDIUM DOSE Q6H X 48HRS SQ-INSULIN SCH ×4 (03:00→20:42)
[2018-01-03] MEDS: PHENYLEPHRINE 80 MG in SODIUM CHLORIDE 0.9% 242 ML IV PRN ×3 (04:26→22:18)
[2018-01-03] MEDS: METRONIDAZOLE PMX 500MG/100ML 100 ML IV SCH ×3 (04:26→20:34)
[2018-01-03 05:26] LABS: MEAN CORPUSCULAR HEMOGLOBIN 32.2 pg (27.5-34.5); MEAN CORPUSCULAR HGB CONC 34.6 g/dL (33.2-36.2); MEAN CORPUSCULAR VOLUME 93.2 fL (81-97); PLATELET COUNT 156 x10^3/uL (130-400); RED BLOOD COUNT 2.31 x10^6/uL (4.38-5.82); RED CELL DISTRIBUTION WIDTH 21.5 % (9.4-14.8)
[2018-01-03] MEDS: ARTIFICIAL TEARS OINT 3.5 GM EACHEYE SCH ×4 (05:30→23:30)
[2018-01-03 05:44] LABS: CHLORIDE 107 mmol/L (98-107)
[2018-01-03 05:53] LABS: MD YES
[2018-01-03 05:58] LABS: BAND#(MANUAL) 3.98 x10^3/uL; BANDS%(MANUAL) 12 % (0-7); LYMPH#(MANUAL) 1.33 x10^3/uL (1-3.4); LYMPHS% (MANUAL) 4 % (22-44); SEG#(MANUAL) 27.89 x10^3/uL (1.8-6.8); SEGS% (MANUAL) 84 % (42-75); TOXIC GRAN 2+
[2018-01-03 05:59] LABS: ANISOCYTOSIS 2+
[2018-01-03 06:00] LABS: <PLATELET ESTIMATE> ADEQUATE; <PLT MORPHOLOGY> NORMAL PLT MORPH
[2018-01-03 06:05] LABS: ALANINE AMINOTRANSFERASE 303 U/L (12-78); ALKALINE PHOSPHATASE 211 U/L (45-117); ANION GAP 13 mmol/L (5-15); BILIRUBIN,TOTAL 2.7 mg/dL (0.2-1.0); CALCIUM 6.3 mg/dL (8.5-10.1); CREATINE KINASE, TOTAL 3197 U/L (39-308); CREATININE 4.25 mg/dL (0.7-1.3); TOTAL PROTEIN 3.9 g/dL (6.4-8.2)
[2018-01-03] MEDS: CLOPIDOGREL 75 MG TABLET PO SCH (09:00)
[2018-01-03] MEDS: MULTIVITAMIN 1 TABLET PO SCH (09:00)
[2018-01-03] MEDS: ASPIRIN 81 MG TABLET EC PO SCH (09:00)
[2018-01-03] MEDS: HEPARIN 25,000 UNITS/500ML PMX 500 ML IV PRN (09:06)
[2018-01-03] MEDS: DIGOXIN 0.25 MG/ML, 2ML IVPush SCH ×2 (09:59→15:00)
[2018-01-03] MEDS ORDERED: AMIODARONE 50 MG/ML, 3ML IVPush STA (10:05)
[2018-01-03] MEDS ORDERED: NOREPINEPHRINE 1 MG/ML, 4ML ONE (10:10)
[2018-01-03] MEDS: AMIODARONE 900 MG in DEXTROSE 5% 482 ML IV PRN ×2 (10:26→10:56)
[2018-01-03] MEDS ORDERED: AMIODARONE 150 MG in DEXTROSE 5% 100 ML IV ONE ×2 (10:30→11:30)
[2018-01-03] MEDS ORDERED: FILTER 0.22 MICRON FOR AMIODARONE IV PRN (10:30)
[2018-01-03] MEDS: MEROPENEM 500 MG in SODIUM CHLORIDE 0.9% 100 ML IV SCH ×2 (10:45→21:53)
[2018-01-03] MEDS: FENTANYL PF 2,500 MCG in SODIUM CHLORIDE 0.9% 200 ML IV PRN (11:21)
[2018-01-03] MEDS: LINEZOLID PMX 600MG/300ML 300 ML IV SCH ×2 (11:22→22:48)
[2018-01-03] MEDS: ARTIFICIAL TEARS 15 DROP/ML BOTTLE EACHEYE PRN ×3 (11:46→23:41)
[2018-01-03 12:42] LABS: FIO2 40 %
[2018-01-03] MEDS: NOREPINEPHRINE 4 MG in SODIUM CHLORIDE 0.9% 246 ML IV SCH (12:57)
[2018-01-03 13:11] LABS: MEAN CORPUSCULAR HEMOGLOBIN 31.4 pg (27.5-34.5); MEAN CORPUSCULAR HGB CONC 34.9 g/dL (33.2-36.2); MEAN PLATELET VOLUME 13.7 fL (7.4-10.4); PLATELET COUNT 140 x10^3/uL (130-400); RED BLOOD COUNT 3.07 x10^6/uL (4.38-5.82); RED CELL DISTRIBUTION WIDTH 22.2 % (9.4-14.8)
[2018-01-03] MEDS ORDERED: AMINO ACID 10% IV SCH ×2 (17:00)
[2018-01-03] MEDS ORDERED: DEXTROSE 70% IV SCH ×2 (17:00)
[2018-01-03] MEDS ORDERED: SMOF TPN IV SCH ×2 (17:00)
[2018-01-03] MEDS ORDERED: FAT EMUL IV SCH ×2 (17:00)
[2018-01-03] MEDS ORDERED: [UNRECOGNIZED DRUG - OTHER] IV SCH ×2 (17:00)
[2018-01-03] MEDS: ATORVASTATIN 80 MG TABLET PO SCH (20:34)
[2018-01-03] MEDS: FINASTERIDE 5 MG TABLET PO SCH (20:35)
[2018-01-03] MEDS ORDERED: INSULIN REGULAR LOW DOSE QDAY SQ-INSULIN SCH (21:00)
[2018-01-04] VITALS (11 sets, daily range): BP systolic 90–111; BP diastolic 40–50
[2018-01-04] MEDS: FLUCONAZOLE 200 MG/100 ML 100 ML IV SCH (00:55)
[2018-01-04] MEDS: HEPARIN 25,000 UNITS/500ML PMX 500 ML IV PRN ×2 (01:18→15:06)
[2018-01-04] MEDS: ALBUTEROL/IPRATROPIUM 2.5MG/0.5MG, 3 ML INLINE SCH ×6 (02:20→22:30)
[2018-01-04] MEDS: INSULIN REGULAR MEDIUM DOSE Q6H X 48HRS SQ-INSULIN SCH ×2 (03:28→09:10)
[2018-01-04 03:53] LABS: ALANINE AMINOTRANSFERASE 248 U/L (12-78); ALBUMIN 0.9 g/dL (3.4-5.0); ANION GAP 12 mmol/L (5-15); CALCIUM 6.9 mg/dL (8.5-10.1); CHLORIDE 101 mmol/L (98-107); CREATININE 4.43 mg/dL (0.7-1.3)
[2018-01-04 04:07] LABS: ALKALINE PHOSPHATASE 206 U/L (45-117); BILIRUBIN,TOTAL 3.7 mg/dL (0.2-1.0); CREATINE KINASE, TOTAL 2422 U/L (39-308); TOTAL PROTEIN 4.1 g/dL (6.4-8.2); TRIGLYCERIDES 158 mg/dL (50-200)
[2018-01-04 05:26] LABS: MD YES; MEAN CORPUSCULAR HEMOGLOBIN 30.5 pg (27.5-34.5); MEAN CORPUSCULAR HGB CONC 33.7 g/dL (33.2-36.2); MEAN CORPUSCULAR VOLUME 90.6 fL (81-97); MEAN PLATELET VOLUME 14.5 fL (7.4-10.4); PLATELET COUNT 133 x10^3/uL (130-400); RED BLOOD COUNT 2.57 x10^6/uL (4.38-5.82); RED CELL DISTRIBUTION WIDTH 22.2 % (9.4-14.8)
[2018-01-04 05:28] LABS: ANISOCYTOSIS 1+; BAND#(MANUAL) 1.94 x10^3/uL; BANDS%(MANUAL) 6 % (0-7); LYMPH#(MANUAL) 2.92 x10^3/uL (1-3.4); LYMPHS% (MANUAL) 9 % (22-44); MONOS% (MANUAL) 4 % (2-9); NRBC % (MANUAL) 1 % (0-1); POLYCHROMASIA 1+; SEG#(MANUAL) 26.24 x10^3/uL (1.8-6.8); SEGS% (MANUAL) 81 % (42-75)
[2018-01-04 05:29] LABS: <PLATELET ESTIMATE> ADEQUATE; <PLT MORPHOLOGY> NORMAL PLT MORPH; TOXIC GRAN 2+
[2018-01-04] MEDS: ARTIFICIAL TEARS OINT 3.5 GM EACHEYE SCH ×4 (05:30→23:30)
[2018-01-04] MEDS: METRONIDAZOLE PMX 500MG/100ML 100 ML IV SCH ×3 (05:59→23:00)
[2018-01-04] MEDS: AMIODARONE 900 MG in DEXTROSE 5% 482 ML IV PRN (08:07)
[2018-01-04] MEDS: MEROPENEM 500 MG in SODIUM CHLORIDE 0.9% 100 ML IV SCH ×2 (08:34→21:35)
[2018-01-04] MEDS: PROPOFOL 100 ML IV PRN (08:48)
[2018-01-04] MEDS: MULTIVITAMIN 1 TABLET PO SCH (09:00)
[2018-01-04] MEDS: CLOPIDOGREL 75 MG TABLET PO SCH (09:00)
[2018-01-04] MEDS ORDERED: MAGNESIUM SULFATE PMX 2GM/50ML 50 ML IV ONE (09:00)
[2018-01-04] MEDS: ASPIRIN 81 MG TABLET EC PO SCH (09:00)
[2018-01-04] MEDS: LINEZOLID PMX 600MG/300ML 300 ML IV SCH ×2 (09:11→23:07)
[2018-01-04] MEDS: PHENYLEPHRINE 80 MG in SODIUM CHLORIDE 0.9% 242 ML IV PRN (11:00)
[2018-01-04] MEDS: INSULIN LISPRO 100 UNITS/ML, PEN SQ-INSULIN SCH ×3 (11:04→21:00)
[2018-01-04] MEDS: ARTIFICIAL TEARS 15 DROP/ML BOTTLE EACHEYE PRN (11:37)
[2018-01-04] MEDS ORDERED: ARTIFICIAL TEARS OINT 3.5 GM OP PRN ×2 (13:00)
[2018-01-04 14:45] LABS: HEMOGRAM NOTE RECHECKED
[2018-01-04] MEDS ORDERED: FAT EMUL IV SCH (17:00)
[2018-01-04] MEDS ORDERED: AMINO ACID 10% IV SCH (17:00)
[2018-01-04] MEDS ORDERED: DEXTROSE 70% IV SCH (17:00)
[2018-01-04] MEDS ORDERED: SMOF TPN IV SCH (17:00)
[2018-01-04] MEDS ORDERED: [UNRECOGNIZED DRUG - OTHER] IV SCH (17:00)
[2018-01-04] MEDS: VASOPRESSIN 100 UNIT in SODIUM CHLORIDE 0.9% 495 ML IV PRN (19:38)
[2018-01-04] MEDS: ATORVASTATIN 80 MG TABLET PO SCH (21:00)
[2018-01-04] MEDS ORDERED: INSULIN GLARGINE 100 UNITS/ML, PEN SQ-INSULIN SCH (21:00)
[2018-01-04] MEDS: FINASTERIDE 5 MG TABLET PO SCH (21:00)
[2018-01-05] MEDS: FLUCONAZOLE 200 MG/100 ML 100 ML IV SCH (00:45)
[2018-01-05] MEDS: ALBUTEROL/IPRATROPIUM 2.5MG/0.5MG, 3 ML INLINE SCH ×6 (02:28→22:54)
[2018-01-05] MEDS: INSULIN LISPRO 100 UNITS/ML, PEN SQ-INSULIN SCH ×4 (03:14→21:01)
[2018-01-05 03:33] LABS: ALANINE AMINOTRANSFERASE 186 U/L (12-78); ALBUMIN 0.8 g/dL (3.4-5.0); ANION GAP 16 mmol/L (5-15); CALCIUM 6.9 mg/dL (8.5-10.1); CHLORIDE 96 mmol/L (98-107)
[2018-01-05 03:36] LABS: MEAN CORPUSCULAR HEMOGLOBIN 30.4 pg (27.5-34.5); MEAN CORPUSCULAR HGB CONC 34.9 g/dL (33.2-36.2); MEAN CORPUSCULAR VOLUME 87.2 fL (81-97); MEAN PLATELET VOLUME 12.8 fL (7.4-10.4); PLATELET COUNT 124 x10^3/uL (130-400); RED BLOOD COUNT 2.42 x10^6/uL (4.38-5.82); RED CELL DISTRIBUTION WIDTH 21.5 % (9.4-14.8)
[2018-01-05 03:39] LABS: MD YES
[2018-01-05 03:42] LABS: <PLATELET ESTIMATE> ADEQUATE; <PLT MORPHOLOGY> NORMAL PLT MORPH; ANISOCYTOSIS 1+; BAND#(MANUAL) 0.66 x10^3/uL; BANDS%(MANUAL) 2 % (0-7); LYMPH#(MANUAL) 2.98 x10^3/uL (1-3.4); LYMPHS% (MANUAL) 9 % (22-44); MONOS#(MANUAL) 1.66 x10^3/uL (0.3-2.7); MONOS% (MANUAL) 5 % (2-9); POLYCHROMASIA 1+; SEGS% (MANUAL) 84 % (42-75); SMUDGE CELLS 1+; TOXIC GRAN 2+
[2018-01-05 03:47] LABS: ALKALINE PHOSPHATASE 193 U/L (45-117); BILIRUBIN,TOTAL 4.8 mg/dL (0.2-1.0); CREATINE KINASE, TOTAL 1464 U/L (39-308); TOTAL PROTEIN 4.2 g/dL (6.4-8.2)
[2018-01-05 04:00] VITALS: BP 104/39
[2018-01-05] MEDS: METRONIDAZOLE PMX 500MG/100ML 100 ML IV SCH ×2 (05:58→20:30)
[2018-01-05] MEDS: ARTIFICIAL TEARS OINT 3.5 GM EACHEYE SCH ×3 (05:59→17:46)
[2018-01-05 06:39] VITALS: BP 112/43
[2018-01-05 07:54] VITALS: BP 123/44
[2018-01-05 08:30] VITALS: BP 92/42
[2018-01-05] MEDS: MEROPENEM 500 MG in SODIUM CHLORIDE 0.9% 100 ML IV SCH ×2 (08:43→22:21)
[2018-01-05] MEDS: ASPIRIN 81 MG TABLET EC PO SCH (08:52)
[2018-01-05] MEDS: CLOPIDOGREL 75 MG TABLET PO SCH (08:53)
[2018-01-05] MEDS: MULTIVITAMIN 1 TABLET PO SCH (08:53)
[2018-01-05] MEDS ORDERED: INSULIN REGULAR MEDIUM DOSE QDAY SQ-INSULIN SCH (09:00)
[2018-01-05 09:15] VITALS: BP 98/42
[2018-01-05] MEDS: AMIODARONE 900 MG in DEXTROSE 5% 482 ML IV PRN (10:56)
[2018-01-05] MEDS: ARTIFICIAL TEARS 15 DROP/ML BOTTLE EACHEYE PRN ×3 (12:19→20:52)
[2018-01-05] MEDS: INSULIN GLARGINE 100 UNITS/ML, PEN SQ-INSULIN SCH ×2 (12:33→21:00)
[2018-01-05] MEDS: PROPOFOL 100 ML IV PRN (13:28)
[2018-01-05 14:37] LABS: ANION GAP 12 mmol/L (5-15); CALCIUM 7.5 mg/dL (8.5-10.1); CHLORIDE 102 mmol/L (98-107); CREATININE 3.83 mg/dL (0.7-1.3)
[2018-01-05] MEDS: PHENYLEPHRINE 80 MG in SODIUM CHLORIDE 0.9% 242 ML IV PRN (16:03)
[2018-01-05] MEDS: FENTANYL PF 2,500 MCG in SODIUM CHLORIDE 0.9% 200 ML IV PRN (16:28)
[2018-01-05] MEDS: FILTER, DISP 1.2 MICRON FOR TPN/PVN IV PRN (16:35)
[2018-01-05] MEDS ORDERED: [UNRECOGNIZED DRUG - OTHER] IV SCH (17:00)
[2018-01-05] MEDS ORDERED: AMINO ACID 10% IV SCH (17:00)
[2018-01-05] MEDS ORDERED: SMOF TPN IV SCH (17:00)
[2018-01-05] MEDS ORDERED: DEXTROSE 70% IV SCH (17:00)
[2018-01-05] MEDS ORDERED: FAT EMUL IV SCH (17:00)
[2018-01-05 17:33] LABS: ANION GAP 10 mmol/L (5-15); CALCIUM 7.6 mg/dL (8.5-10.1); CHLORIDE 105 mmol/L (98-107); CREATININE 3.25 mg/dL (0.7-1.3)
[2018-01-05] MEDS: LINEZOLID PMX 600MG/300ML 300 ML IV SCH (17:46)
[2018-01-05] MEDS: ATORVASTATIN 80 MG TABLET PO SCH (20:59)
[2018-01-05] MEDS: FINASTERIDE 5 MG TABLET PO SCH (21:00)
[2018-01-06] MEDS: FLUCONAZOLE 200 MG/100 ML 100 ML IV SCH (00:34)
[2018-01-06] MEDS: ARTIFICIAL TEARS OINT 3.5 GM EACHEYE SCH ×3 (00:34→10:56)
[2018-01-06] MEDS: PROPOFOL 100 ML IV PRN (00:34)
[2018-01-06] MEDS: ALBUTEROL/IPRATROPIUM 2.5MG/0.5MG, 3 ML INLINE SCH ×4 (02:44→13:41)
[2018-01-06] MEDS: METRONIDAZOLE PMX 500MG/100ML 100 ML IV SCH ×2 (02:48→11:42)
[2018-01-06] MEDS: PHENYLEPHRINE 80 MG in SODIUM CHLORIDE 0.9% 242 ML IV PRN ×3 (02:49→15:29)
[2018-01-06 03:55] LABS: MEAN CORPUSCULAR HEMOGLOBIN 30.8 pg (27.5-34.5); MEAN CORPUSCULAR HGB CONC 35.2 g/dL (33.2-36.2); MEAN CORPUSCULAR VOLUME 87.4 fL (81-97); MEAN PLATELET VOLUME 12.6 fL (7.4-10.4); PLATELET COUNT 118 x10^3/uL (130-400); RED CELL DISTRIBUTION WIDTH 20.1 % (9.4-14.8)
[2018-01-06 04:00] VITALS: BP 103/45
[2018-01-06] MEDS: INSULIN LISPRO 100 UNITS/ML, PEN SQ-INSULIN SCH ×2 (04:00→10:53)
[2018-01-06 04:06] LABS: ALANINE AMINOTRANSFERASE 151 U/L (12-78); ALBUMIN 0.8 g/dL (3.4-5.0); ANION GAP 13 mmol/L (5-15); CALCIUM 7.6 mg/dL (8.5-10.1); CHLORIDE 102 mmol/L (98-107); CREATININE 4.26 mg/dL (0.7-1.3)
[2018-01-06 04:11] LABS: ALKALINE PHOSPHATASE 210 U/L (45-117); BILIRUBIN,TOTAL 5.1 mg/dL (0.2-1.0); CREATINE KINASE, TOTAL 625 U/L (39-308); TOTAL PROTEIN 4.5 g/dL (6.4-8.2)
[2018-01-06 04:12] LABS: PREALBUMIN 7.5 mg/dL (20.0-40.0); TRIGLYCERIDES 393 mg/dL (50-200)
[2018-01-06 05:04] LABS: MD YES
[2018-01-06 05:08] LABS: ANISOCYTOSIS 1+; BAND#(MANUAL) 1.14 x10^3/uL; BANDS%(MANUAL) 3 % (0-7); LYMPH#(MANUAL) 1.14 x10^3/uL (1-3.4); LYMPHS% (MANUAL) 3 % (22-44); MONOS#(MANUAL) 3.04 x10^3/uL (0.3-2.7); MONOS% (MANUAL) 8 % (2-9); NRBC % (MANUAL) 1 % (0-1); POLYCHROMASIA 1+; SEG#(MANUAL) 32.68 x10^3/uL (1.8-6.8); SEGS% (MANUAL) 86 % (42-75)
[2018-01-06 05:09] LABS: <PLATELET ESTIMATE> DECREASED; LARGE PLATELETS 1+
[2018-01-06] MEDS: LINEZOLID PMX 600MG/300ML 300 ML IV SCH (05:30)
[2018-01-06 05:36] VITALS: BP 100/44
[2018-01-06 05:51] VITALS: BP 94/42
[2018-01-06] MEDS: ASPIRIN 81 MG TABLET EC PO SCH (09:00)
[2018-01-06] MEDS ORDERED: AMIODARONE 900 MG in DEXTROSE 5% 482 ML IV PRN (09:00)
[2018-01-06] MEDS: MULTIVITAMIN 1 TABLET PO SCH (09:00)
[2018-01-06] MEDS ORDERED: FUROSEMIDE 40 MG/4 ML IV SCH (09:00)
[2018-01-06] MEDS: CLOPIDOGREL 75 MG TABLET PO SCH (09:00)
[2018-01-06] MEDS ORDERED: MEROPENEM 1 GM in SODIUM CHLORIDE 0.9% 100 ML IV SCH (09:00)
[2018-01-06] MEDS: ALBUMIN HUMAN 25% 100 ML IV SCH ×2 (10:19→15:25)
[2018-01-06] MEDS: INSULIN GLARGINE 100 UNITS/ML, PEN SQ-INSULIN SCH (10:53)
[2018-01-06] MEDS: ARTIFICIAL TEARS 15 DROP/ML BOTTLE EACHEYE PRN (10:55)
[2018-01-06 12:45] LABS: MEAN CORPUSCULAR HEMOGLOBIN 30.7 pg (27.5-34.5); MEAN CORPUSCULAR HGB CONC 34.6 g/dL (33.2-36.2); MEAN CORPUSCULAR VOLUME 88.8 fL (81-97); PLATELET COUNT 102 x10^3/uL (130-400); RED BLOOD COUNT 2.69 x10^6/uL (4.38-5.82); RED CELL DISTRIBUTION WIDTH 18.7 % (9.4-14.8)
[2018-01-06 12:56] LABS: ALBUMIN 1.3 g/dL (3.4-5.0); ANION GAP 14 mmol/L (5-15); CALCIUM 7.8 mg/dL (8.5-10.1); CHLORIDE 103 mmol/L (98-107); CREATININE 3.37 mg/dL (0.7-1.3)
[2018-01-06 13:14] LABS: MD YES
[2018-01-06 13:16] LABS: ANISOCYTOSIS 1+; BAND#(MANUAL) 0.36 x10^3/uL; BANDS%(MANUAL) 1 % (0-7); EOS#(MANUAL) 0.36 x10^3/uL (0.0-0.4); EOS% (MANUAL) 1 % (1-7); LYMPH#(MANUAL) 0.72 x10^3/uL (1-3.4); LYMPHS% (MANUAL) 2 % (22-44); MONOS#(MANUAL) 3.26 x10^3/uL (0.3-2.7); MONOS% (MANUAL) 9 % (2-9); POLYCHROMASIA 1+; SEG#(MANUAL) 31.49 x10^3/uL (1.8-6.8); SEGS% (MANUAL) 87 % (42-75)
[2018-01-06 13:17] LABS: <PLATELET ESTIMATE> DECREASED; LARGE PLATELETS 1+; TOXIC GRAN 2+
[2018-01-06] MEDS ORDERED: morphine SULFATE 10 MG/ML, 1ML IVPush PRN (16:00)
[2018-01-06] MEDS ORDERED: ATROPINE OPHTH SOLN 1%, 5ML PO PRN (16:00)
[2018-01-06] MEDS ORDERED: LORazepam 2 MG/ML, 1ML IVPush PRN ×2 (16:00)
[2018-01-06] MEDS ORDERED: SMOF TPN IV SCH (17:00)
[2018-01-06] MEDS ORDERED: [UNRECOGNIZED DRUG - OTHER] IV SCH (17:00)
[2018-01-06] MEDS ORDERED: DEXTROSE 70% IV SCH (17:00)
[2018-01-06] MEDS ORDERED: AMINO ACID 10% IV SCH (17:00)
[2018-01-06] MEDS ORDERED: FAT EMUL IV SCH (17:00)
== END 2018-01-06 18:59 | disposition expired | DRG 853 ==
LOC: ORIP 07:14 → CCU 11:36 → 5SO 19:14 → CCU 19:51 → 5SO 12-25 11:34 → CCU 12-31 21:39
PROVIDERS: ADMIT Internal Medicine Cardiovascular Disease; ATTEND Internal Medicine Cardiovascular Disease
PROC: B24BZZ4 Ultrasonography of Heart with Aorta, Transesophageal (ICD-10-PCS; 2017-12-24)
PROC: 02RF38Z Replacement of Aortic Valve with Zooplastic Tissue, Percutaneous Approach (ICD-10-PCS; principal; 2017-12-24 09:30)
PROC: 0D9670Z Drainage of Stomach with Drainage Device, Via Natural or Artificial Opening (ICD-10-PCS; 2017-12-29)
PROC: 02HV33Z Insertion of Infusion Device into Superior Vena Cava, Percutaneous Approach (ICD-10-PCS; 2017-12-30)
PROC: B548ZZA Ultrasonography of Superior Vena Cava, Guidance (ICD-10-PCS; 2017-12-30)
PROC: B518ZZA Fluoroscopy of Superior Vena Cava, Guidance (ICD-10-PCS; 2017-12-30)
PROC: 0BH18EZ Insertion of Endotracheal Airway into Trachea, Via Natural or Artificial Opening Endoscopic (ICD-10-PCS; 2017-12-31)
PROC: 0DBN0ZZ Excision of Sigmoid Colon, Open Approach (ICD-10-PCS; 2017-12-31)
PROC: 0DTJ0ZZ Resection of Appendix, Open Approach (ICD-10-PCS; 2017-12-31)
PROC: 3E1M38Z Irrigation of Peritoneal Cavity using Irrigating Substance, Percutaneous Approach (ICD-10-PCS; 2017-12-31)
PROC: 5A1955Z Respiratory Ventilation, Greater than 96 Consecutive Hours (ICD-10-PCS; 2017-12-31 17:30)
PROC: 02HV33Z Insertion of Infusion Device into Superior Vena Cava, Percutaneous Approach (ICD-10-PCS; 2018-01-02)
PROC: B548ZZA Ultrasonography of Superior Vena Cava, Guidance (ICD-10-PCS; 2018-01-02)
PROC: 5A1D70Z Performance of Urinary Filtration, Intermittent, Less than 6 Hours Per Day (ICD-10-PCS; 2018-01-02)
PROC: 30233N1 Transfusion of Nonautologous Red Blood Cells into Peripheral Vein, Percutaneous Approach (ICD-10-PCS; 2018-01-02)
PROC: 5A2204Z Restoration of Cardiac Rhythm, Single (ICD-10-PCS; 2018-01-03)
PROC: 5A1D70Z Performance of Urinary Filtration, Intermittent, Less than 6 Hours Per Day (ICD-10-PCS; 2018-01-03)
PROC: 5A1D80Z Performance of Urinary Filtration, Prolonged Intermittent, 6-18 hours Per Day (ICD-10-PCS; 2018-01-06)
DX: A41.9 Sepsis, unspecified organism (principal); E43 Unspecified severe protein-calorie malnutrition; G93.40 Encephalopathy, unspecified; I21.4 Non-ST elevation (NSTEMI) myocardial infarction; J96.00 Acute respiratory failure, unspecified whether with hypoxia or hypercapnia; N17.0 Acute kidney failure with tubular necrosis; R65.21 Severe sepsis with septic shock; D62 Acute posthemorrhagic anemia; E87.1 Hypo-osmolality and hyponatremia; E87.2 Acidosis; J90 Pleural effusion, not elsewhere classified; J98.11 Atelectasis; K56.609 Unspecified intestinal obstruction, unspecified as to partial versus complete obstruction; K56.7 Ileus, unspecified; M62.82 Rhabdomyolysis; Z99.11 Dependence on respirator [ventilator] status; I51.81 Takotsubo syndrome; K57.20 Diverticulitis of large intestine with perforation and abscess without bleeding; I35.0 Nonrheumatic aortic (valve) stenosis; Z68.37 Body mass index [BMI] 37.0-37.9, adult; E78.2 Mixed hyperlipidemia; E83.42 Hypomagnesemia; E87.6 Hypokalemia; E87.70 Fluid overload, unspecified; I12.9 Hypertensive chronic kidney disease with stage 1 through stage 4 chronic kidney disease, or unspecified chronic kidney disease; I25.10 Atherosclerotic heart disease of native coronary artery without angina pectoris; I34.0 Nonrheumatic mitral (valve) insufficiency; I48.91 Unspecified atrial fibrillation; I71.4 Abdominal aortic aneurysm, without rupture; K75.89 Other specified inflammatory liver diseases; M10.9 Gout, unspecified; N18.9 Chronic kidney disease, unspecified; N40.0 Benign prostatic hyperplasia without lower urinary tract symptoms; N99.0 Postprocedural (acute) (chronic) kidney failure; R57.0 Cardiogenic shock; Z51.5 Encounter for palliative care; Z66 Do not resuscitate; R74.0 Nonspecific elevation of levels of transaminase and lactic acid dehydrogenase [LDH]; R79.89 Other specified abnormal findings of blood chemistry; R80.9 Proteinuria, unspecified; E78.5 Hyperlipidemia, unspecified; Z79.02 Long term (current) use of antithrombotics/antiplatelets; Z79.82 Long term (current) use of aspirin; Z82.49 Family history of ischemic heart disease and other diseases of the circulatory system; Z87.891 Personal history of nicotine dependence; Z93.3 Colostomy status; Z99.2 Dependence on renal dialysis
CPT/HCPCS: 31622; 33361; 36415; 36556; 36569; 36600; 71045; 74018; 74022; 74176; 74340; 76937; 77001; 80048; 80053; 80069; 81001; 82040; 82533; 82550; 82570; 82607; 82746; 82803; 82962; 83605; 83735; 84100; 84134; 84156; 84300; 84443; 84478; 84484; 85014; 85018; 85025; 85027; 85347; 85520; 85610; 85730; 86704; 86706; 86850; 86900; 86923; 87040; 87070; 87077; 87081; 87205; 87340; 88302; 88304; 88307; 92986; 93005; 93308; 93312; 93321; 93325; 93355; 93591; 94002; 94003; 94640; C1760; C1769; C1894; J0690; J0696; J0878; J1100; J1644; J1815; J1940; J2020; J2185; J2250; J2405; J2704; J2720; J3010; J3480; J3490; J7060; J7620; P9047; Q9967; C1751; J0282; J0330; J0360; J1160; J1450; J1642; J2060; J2270; J2370; J3420; J3475; J7030; J7040; J7050; J7120; P9016; S0028